=== PATIENT | female | born 1960 | race Hispanic/Latino ===

== ENCOUNTER 2017-12-29 23:06 | Emergency (ER) | payer BC ==
[2017-12-29 23:37] VITALS: O2SAT 98
[2017-12-30 00:41] VITALS: BP 188/91; PULSE 66; RESP 17; TEMP 98.3
--- NOTE | 2017-12-30 01:13 | C.PDOC ---
History Of Present Illness 57 year old female presents to the emergency department status-post tripping and falling on sidewalk prior to arrival. Patient states that she tried to break her fall with her hands, but failed and ended up hitting her head on the sidewalk. She denies LOC, and admits to having a few drinks for dinner. Patient reports taking a baby aspirin prophylactically. She denies a history of HTN but states that her BP elevates when she is in pain. She reports her Tetanus vaccination is UTD. - HPI Time Seen by Provider: 12/29/17 23:25 Chief Complaint (Nursing): Trauma History Per: Patient History/Exam Limitations: no limitations Onset/Duration Of Symptoms: Hrs Injury Occurred (Timing): Hours Ago: Location Of Injury: Anterior: Head Associated Symptoms: Other Past Medical History Reviewed: Historical Data, Nursing Documentation, Vital Signs Vital Signs: Last Vital Signs Temp 98.3 F 12/30/17 00:41 Pulse 66 12/30/17 00:41 Resp 17 12/30/17 00:41 BP 188/91 H 12/30/17 00:41 Pulse Ox 98 12/30/17 00:41 - Medical History PMH: No Chronic Diseases Surgical History: No Surg Hx Family History: States: No Known Family Hx - Social History Hx Alcohol Use: Yes Hx Substance Use: No - Immunization History Hx Tetanus Toxoid Vaccination: Yes Hx Influenza Vaccination: Yes Hx Pneumococcal Vaccination: No Review Of Systems Constitutional: Negative for: Fever, Chills Eyes: Negative for: Vision Change Cardiovascular: Negative for: Chest Pain, Light Headedness Musculoskeletal: Positive for: Hand Pain (right hand), Other (Head/Facial pain) Skin: Positive for: Bruising Neurological: Negative for: Weakness, Numbness, Altered Mental Status, Headache, Dizziness Physical Exam - Physical Exam Appears: Non-toxic, No Acute Distress Skin: Warm, Dry Head: Normacephalic, Tenderness (to the right upper forehead), Swelling (to the right upper forehead), Abrasion (2cm area of abrasion to the right upper forehead), Other (large hematoma to the right upper forehead and right eyebrow. NO raccoon eyes. NO kelly signs. ) Eye(s): bilateral: Normal Inspection, PERRL, EOMI, Other (no nystagmus) Ear(s): Bilateral: Normal, Other (no hemotympanum) Nose: Normal Neck: Normal, Trachea Midline, No Midline Cervical Tenderness, No Paracervical Tenderness, Supple Chest: Symmetrical, No Tenderness Cardiovascular: Rhythm Regular, No Murmur Respiratory: No Rales, No Rhonchi, No Wheezing Extremity: Normal ROM (full ROM at right wrist), Tenderness (to the right thenar eminence, skin intact) Pulses: Left Radial: Normal, Right Radial: Normal Neurological/Psych: Oriented x3, Normal Speech, Normal Cognition, Normal Motor, Normal Sensation, Other (no focal deficits) ED Course And Treatment O2 Sat by Pulse Oximetry: 98 (RA) Pulse Ox Interpretation: Normal - Other Rad CT Orbits/Facials X-Ray: Viewed By Me, Read By Radiologist Interpretation: CT of the facial bones and orbits without contrast. Clinical history: Pain, injury. Technique: Multiple axial CT images were obtained through the facial bones and paranasal sinuses utilizing 3 mm axial slices without administration of contrast. Coronal and sagittal reconstructions were also obtained. Findings: The visualized paranasal sinuses demonstrate multiple mucus retention cysts in the right maxillary sinus. There is a small air fluid level in the left maxillary sinus. The osteomeatal complexes are patent bilaterally. The nasal septum is midline. The visualized mastoid air cells are clear. The osseous structures do not demonstrate any acute abnormalities. The superficial soft tissues are swollen in the right frontal region. Impression: 1. No acute fracture. The orbits are intact. 2. Focal superficial soft tissue contusion in the right frontal region. 3. Small air fluid level in the left maxillary sinus consistent with sinusitis. 4. Chronic mucus retention cysts in the right maxillary sinus. - CT Scan/US CT Head Other Rad Studies (CT/US): Read By Radiologist, Radiology Report Reviewed CT/US Interpretation: CT of the head. Clinical history: fall. Technique: Multiple axial CT images were obtained through the head without administration of contrast. Comparison: None. Findings: The ventricles and sulci are symmetric bilaterally. There is no evidence of acute hemorrhage or infarct. There is no midline shift, mass effect, or extra-axial fluid collection. The osseous structures are unremarkable. The visualized paranasal sinuses and mastoid air cells are clear. There is superficial soft tissue swelling in the right frontal region. Impression: No evidence of acute intracranial hemorrhage or infarct. Superficial soft tissue contusion in the right frontal region. Medical Decision Making Medical Decision Making: pt with trip and fall, hit head, denies loc. large hematoma to right forhead with orbital pain, pt on baby asa. will get head ct and orbit ct. both ct neg for acute pathology, d/c pt with outpt f/u for bp check, head injury instructions. pt is with friend who will look after her. Disposition Counseled Patient/Family Regarding: Studies Performed, Diagnosis, Need For Followup - Disposition Disposition: HOME/ ROUTINE Disposition Time: 01:25 Condition: GOOD Additional Instructions: Cold compresses to swelling right side forehead. Tylenol for pain. You should be woken several times in night to make sure you wake easily. Return to ER for sever headache, seizure, altered mental status, vomiting or other concerns. Follow up with your doctor as yee as possible for repeat blood pressure check. Prescriptions: Acetaminophen [Tylenol 325mg tab] 650 mg PO Q6 #30 tab Instructions: Closed Head Injury (DC), Contusion (DC) Forms: [facility] (H[place]er), General Discharge Instructions - Clinical Impression Clinical Impression: Closed head injury, Hematoma of face, Fall from slip, trip, or stumble - PA / ZONING TECHNICIAN / Resident Statement MD/DO has reviewed & agrees with the documentation as recorded. - Scribe Statement The provider has reviewed the documentation as recorded by the Scribe (Modesto Arnold) All medical record entries made by the Scribe were at my direction and personally dictated by me. I have reviewed the chart and agree that the record accurately reflects my personal performance of the history, physical exam, medical decision making, and the department course for this patient. I have also personally directed, reviewed, and agree with the discharge instructions and disposition.
--- NOTE | 2017-12-30 11:37 | CT ---
Date of service: 12/30/2017 PROCEDURE: CT ORBITS WITHOUT CONTRAST. HISTORY: right orbital pain fall hematoma COMPARISON: None available. TECHNIQUE: Axial CT images of the orbits were obtained. Coronal and sagittal reformats were generated. Radiation dose: Total exam DLP = 730.86 mGy-cm. This CT exam was performed using one or more of the following dose reduction techniques: Automated exposure control, adjustment of the mA and/or kV according to patient size, and/or use of iterative reconstruction technique. FINDINGS: RIGHT ORBIT: RIGHT BONY ORBIT: No fracture identified. RIGHT INTRAORBITAL STRUCTURES: Globe: Normal. Extraocular muscles: Normal. Post septal space: Normal. Optic Nerve: Normal. Lacrimal Apparatus: Normal. RIGHT PRESEPTAL SOFT TISSUES: Moderate right supraorbital and frontal scalp hematoma and edema is appreciated. No retained radiodense foreign body or emphysema soft tissue changes are appreciated. LEFT ORBIT: LEFT BONY ORBIT: Normal. LEFT INTRAORBITAL STRUCTURES: Globe: Normal. Extraocular muscles: Normal. Post septal space: Normal Optic Nerve: Normal. . Lacrimal Apparatus: Normal. LEFT PRESEPTAL SOFT TISSUES: Normal. OTHER: Trace left maxillary sinusitis. Right ethmoid sinus cyst or polyp noted. IMPRESSION: No fracture of either orbit or significant postseptal findings. Moderate right supraorbital and frontal scalp edema/hematoma noted. Concordant preliminary report from [facility], 12/30/2017.
--- NOTE | 2017-12-30 12:32 | CT ---
Date of service: 12/30/2017 PROCEDURE: CT HEAD WITHOUT CONTRAST. HISTORY: fall, hematoma right forehead on asa COMPARISON: None available. TECHNIQUE: Axial computed tomography images were obtained through the head/brain without intravenous contrast. Radiation dose: Total exam DLP = 1071.28 mGy-cm. This CT exam was performed using one or more of the following dose reduction techniques: Automated exposure control, adjustment of the mA and/or kV according to patient size, and/or use of iterative reconstruction technique. FINDINGS: HEMORRHAGE: No intracranial hemorrhage. BRAIN: Normal fox-white matter differentiation and density are appreciated throughout the cerebrum and cerebellum with the brainstem appearing unremarkable as well. There is no mass effect. There is no suspicious extra-axial fluid collection and the midline brain anatomy appears diffusely unremarkable. VENTRICLES: Unremarkable. No hydrocephalus. CALVARIUM: Unremarkable. No destructive bony lesion or displaced fracture identified including through the skullbase. [id number] right periorbital/frontal scalp hematoma/edema. PARANASAL SINUSES: Trace left maxillary sinusitis. Polyp persist is seen in a solitary right ethmoid air cell as well as the right sphenoid sinus inferiorly. MASTOID AIR CELLS: Unremarkable as visualized. No inflammatory changes. OTHER FINDINGS: None. IMPRESSION: No acute intracranial findings. No fracture identified. Mild right frontal scalp/supraorbital hematoma. Concordant preliminary report from [facility], 12/30/2017.
== END 2017-12-30 01:31 | disposition home or self-care (01) ==
LOC: C.ER 23:06
DX: S00.83XA Contusion of other part of head, initial encounter (principal); W01.0XXA Fall on same level from slipping, tripping and stumbling without subsequent striking against object, initial encounter; Y92.480 Sidewalk as the place of occurrence of the external cause